=== PATIENT | female | born 1980 | race American Indian/Alaskan Native ===

== ENCOUNTER 2016-06-03 16:44 | Emergency (ER) | payer MEDICAID, OTHER ==
[2016-06-03 17:02] VITALS: BP 147/95
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
[2016-06-03] MEDS ORDERED: MOTRIN PO ONE (21:53)
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
== END 2016-06-03 22:49 | disposition home or self-care (01) ==
LOC: ED 16:44
DX: S09.90XA Unspecified injury of head, initial encounter (principal); M62.830 Muscle spasm of back; M25.561 Pain in right knee; V89.2XXA Person injured in unspecified motor-vehicle accident, traffic, initial encounter; Y93.89 Activity, other specified; Y99.9 Unspecified external cause status; Y92.410 Unspecified street and highway as the place of occurrence of the external cause
CPT/HCPCS: 70450; 72100